=== PATIENT | male | born 1975 | race Caucasian/White ===

== ENCOUNTER 2018-04-22 08:09 | Day surgery (SDC) | payer OTHER ==
[~2018-04-22 08:09] MED LIST: CEFAZOLIN 1 GM INJ; SUCCINYLCHOLINE CHLORIDE 100 MG/5 ML SYG IV
[2018-04-22] MEDS ORDERED: FENTAnyl 50 MCG/ML VIAL (11:53)
[2018-04-22] MEDS ORDERED: DEXAMETHASONE 4 MG/ML 1 ML INJ (11:53)
[2018-04-22] MEDS ORDERED: ROCURONIUM 50 MG INJ (11:53)
[2018-04-22] MEDS ORDERED: PROPOFOL 20 ML (11:53)
[2018-04-22] MEDS ORDERED: GLYCOPYRROLATE 0.4 MG INJ (11:53)
[2018-04-22] MEDS ORDERED: ONDANSETRON 4 MG INJ (11:53)
[2018-04-22] MEDS ORDERED: MIDAZOLAM 1 MG/ML 2 ML INJ ×2 (11:53→12:28)
[2018-04-22] MEDS ORDERED: CEFAZOLIN 1 GM INJ (11:53)
[2018-04-22] MEDS ORDERED: NEOSTIGMINE 3 MG/3 ML SYRINGE (11:53)
[2018-04-22] MEDS ORDERED: ROPIVACAINE 0.5 % 30 ML VIAL (11:56)
[2018-04-22] MEDS ORDERED: hydrALAzine 20 MG INJ ×2 (12:50→12:51)
[2018-04-22] MEDS ORDERED: MIDAZOLAM 1 MG/ML 2 ML INJ IV (13:00)
[2018-04-22] MEDS ORDERED: TRIMETHOBENZAMIDE 100 MG/ML VIAL IM (13:00)
[2018-04-22] MEDS ORDERED: LABETALOL HCL 20MG INJ IV (13:00)
[2018-04-22] MEDS ORDERED: MEPERIDINE 25 MG INJ IV (13:00)
[2018-04-22] MEDS ORDERED: HYDROmorphONE 1 MG/5 ML IV SYRINGE IV ×3 (13:00)
[2018-04-22] MEDS ORDERED: DIPHENHYDRAMINE 50 MG INJ IV (13:00)
[2018-04-22] MEDS ORDERED: FENTAnyl 50 MCG/ML VIAL IV ×3 (13:00)
[2018-04-22] MEDS ORDERED: EPHEDrine SULFATE 50 MG/5 ML SYG IV (13:00)
[2018-04-22] MEDS ORDERED: ALBUTEROL 0.083% (NEB) 2.5 MG/3 ML AMP HHN (13:00)
[2018-04-22] MEDS ORDERED: OXYCODONE/ACETAMINOPHEN (5/325) TAB PO ×2 (13:00)
[2018-04-22] MEDS ORDERED: IPRATROPIUM (NEB) 0.5 MG/2.5 ML AMP HHN (13:00)
[2018-04-22] MEDS ORDERED: hydrALAzine 20 MG INJ IV (13:00)
[2018-04-22] MEDS: EPINEPHrine 1 MG/ML 30 ML INJ INJ (13:03)
[2018-04-22] MEDS: morphine SULFATE/PF (10 MG/10 ML) INJ (14:05)
[2018-04-22] MEDS: SODIUM CL BACTERIOSTATIC 30 ML INJ (14:05)
[2018-04-22] MEDS ORDERED: SUGAMMADEX SODIUM 200 MG/2 ML VIAL IV (14:31)
[2018-04-22] MEDS: ONDANSETRON 4 MG INJ IV (15:43)
== END 2018-04-22 18:20 | disposition home or self-care (01) ==
LOC: SDS 08:09
DX: S43.432D Superior glenoid labrum lesion of left shoulder, subsequent encounter (principal); X58.XXXD Exposure to other specified factors, subsequent encounter; M65.812 Other synovitis and tenosynovitis, left shoulder; M94.212 Chondromalacia, left shoulder; I10 Essential (primary) hypertension; J45.909 Unspecified asthma, uncomplicated; E66.01 Morbid (severe) obesity due to excess calories; Z68.42 Body mass index [BMI] 45.0-49.9, adult; M75.42 Impingement syndrome of left shoulder
CPT/HCPCS: 29807